=== PATIENT | female | born 2000 | race Caucasian/White ===

== ENCOUNTER 2019-05-23 21:56 | Emergency (ER) | payer MEDICAID ==
--- NOTE | 2019-05-23 22:35 | EDM.PDOC ---
ED HPI GENERAL MEDICAL PROBLEM - General Chief Complaint: General Stated Complaint: VAGINAL BLEEDING Time Seen by Provider: 05/23/19 22:20 Source of Information: Reports: Patient History Limitations: Reports: No Limitations - History of Present Illness INITIAL COMMENTS - FREE TEXT/NARRATIVE: This patient presents to the ED for vaginal bleeding. She states her last normal period ended on 05/08/19 and she woke up this morning "covered in blood. " She states she has used more "tampons and pads than I can count" today. She she is not using control because she "doesn't believe in it." Her last physical exam was 3 years ago. Patient denies potential for . Denies vaginal discharge. She denies other concerns or complaints. Onset: Today Duration: Heavy, Other (vaginal bleeding) Quality: Reports: Other (pelvic cramps) Improves with: Reports: None Worsens with: Reports: None Lower Abdominal Pain Score (Numeric/FACES): 5 - Related Data Allergies Allergy/AdvReac Type Severity Reaction Status Date / Time ibuprofen Allergy Cannot Verified 05/23/19 21:59 Remember Home Meds: Home Meds valACYclovir HCl [Valtrex] 500 mg PO DAILY 05/23/19 [History] Social & Family History - Tobacco Use Smoking Status *Q: Current Every Day Smoker Years of Tobacco use: 5 Packs/Tins Daily: 1 Used Tobacco, but Quit: No Second Hand Smoke Exposure: No - Caffeine Use Caffeine Use: Reports: Energy Drinks, Soda - Alcohol Use Date of Last Drink: 05/22/19 - Recreational Drug Use Recreational Drug Use: No ED ROS GENERAL - Review of Systems Review Of Systems: See Below Constitutional: Reports: No Symptoms HEENT: Reports: No Symptoms Respiratory: Reports: No Symptoms Cardiovascular: Reports: No Symptoms GI/Abdominal: Reports: No Symptoms : Reports: Irregular Menses Musculoskeletal: Reports: No Symptoms Skin: Reports: No Symptoms ED EXAM, GENERAL - Physical Exam Exam: See Below Exam Limited By: No Limitations General Appearance: Alert, WD/WN, No Apparent Distress Eye Exam: Bilateral Eye: PERRL Ears: Normal External Exam Nose: Normal Inspection Throat/Mouth: Normal Inspection Head: Atraumatic, Normocephalic Neck: Normal Inspection, Full Range of Motion Respiratory/Chest: No Respiratory Distress (Female) Exam: Deferred, Vaginal Bleeding Course - Vital Signs Last Recorded V/S: Last Vital Signs Temp 36.1 C 05/23/19 22:05 Pulse 79 05/23/19 22:05 Resp 16 05/23/19 22:05 BP 133/59 L 05/23/19 22:05 Pulse Ox 99 05/23/19 22:05 - Re-Assessments/Exams Free Text/Narrative Re-Assessment/Exam: This patient present to the ED for vaginal bleeding. History and clinical findings are most consistent with dysfunctional uterine bleeding. There is no evidence of , endometriosis, ovarian cysts, STIs, or PID. She was given a prescription for oral contraceptives and instructed to follow up with your PCP. 05/23/19 22:37 Departure - Departure Time of Disposition: 22:35 Disposition: Home, Self-Care 01 Condition: Good Clinical Impression: Dysfunctional uterine bleeding - Discharge Information Instructions: Drospirenone; Ethinyl Estradiol tablets Forms: ED Department Discharge Additional Instructions: Follow up with regular provider for referral to [facility] for further evaluation. Fill prescription provided to you tomorrow and begin taking as directed. Drink plenty of fluids and get plenty of rest. Diet and activity as tolerated. Follow up in clinic as instructed. Call with any questions. Sepsis Event Note - Evaluation Sepsis Screening Result: No Definite Risk - Focused Exam Vital Signs: Vital Signs Temp Pulse Resp BP Pulse Ox 05/23/19 22:05 36.1 C 79 16 133/59 L 99 05/23/19 22:02 36.1 C 79 16 133/59 L 99 Date Exam was Performed: 05/23/19 Time Exam was Performed: 22:28
== END 2019-05-23 22:29 | disposition home or self-care (01) ==
LOC: LB.ED 21:56
DX: N93.8 Other specified abnormal uterine and vaginal bleeding (principal); F17.210 Nicotine dependence, cigarettes, uncomplicated; Z88.6 Allergy status to analgesic agent
CPT/HCPCS: 99283